=== PATIENT | female | born 1965 | race Caucasian/White ===

== ENCOUNTER 2018-09-09 17:44 | Emergency (ER) | payer BC, OTHER ==
[2018-09-09] MEDS ORDERED: IPRATROPIUM BROM 0.5MG/2.5ML ONE (20:27)
[2018-09-09] MEDS ORDERED: ALBUTEROL 2.5 MG/3 ML NEB SOL ONE (20:27)
--- NOTE | 2018-09-09 20:54 | RAD REPORT ---
EXAM DESCRIPTION: More Single View09/09/2018 8:13 pm CLINICAL HISTORY: Shortness of breath COMPARISON: none FINDINGS: The lungs appear clear of acute infiltrate. The heart is normal size IMPRESSION: No acute abnormalities displayed
--- NOTE | 2018-09-09 21:32 | ER ---
Nurse's Notes [facility] Name: Bibi Peterson Age: 52 yrs Sex: Female : 1965 Arrival Date: 09/09/2018 Time: 17:50 Bed 12 Private MD: Diagnosis: Acute bronchitis Presentation: 09/09 17:51 Presenting complaint: Patient states: Sunday i woke with cold symptoms and fever, hj today its getting worse, i think im wheezing;. Transition of care: patient was not received from another setting of care. Onset of symptoms was September 09, 2018. Risk Assessment: Do you want to hurt yourself or someone else? Patient reports no desire to harm self or others. Initial Sepsis Screen: Does the patient meet any 2 criteria? No. Patient's initial sepsis screen is negative. Does the patient have a suspected source of infection? No. Patient's initial sepsis screen is negative. Care prior to arrival: None. 17:51 Method Of Arrival: Ambulatory 17:51 Acuity: FARAZ 4 hj Triage Assessment: 17:52 General: Appears in no apparent distress. uncomfortable, Behavior is calm, cooperative, hj appropriate for age. Pain: Denies pain. Respiratory: Reports labored breathing Onset: The symptoms/episode began/occurred SHRIMPER: 17:53 LMP N/A - Hysterectomy hj Historical: - Allergies: 17:52 PENICILLINS; hj - Home Meds: 17:52 None [Active]; hj - PMHx: 17:52 None; hj - PSHx: 17:52 Hysterectomy; ; hj - Immunization history:: Adult Immunizations not up to date. - Social history:: Smoking status: Patient/guardian denies using tobacco, Patient uses alcohol. - Ebola Screening: : Patient negative for fever greater than or equal to 101.5 degrees Fahrenheit, and additional compatible Ebola Virus Disease symptoms Patient denies exposure to infectious person Patient denies travel to an Ebola-affected area in the 21 days before illness onset. Screenin:52 Abuse screen: Denies threats or abuse. Denies injuries from another. Nutritional hj screening: No deficits noted. Tuberculosis screening: No symptoms or risk factors identified. Fall Risk None identified. Assessment: 17:52 Cardiovascular: Rhythm is. Respiratory: Airway is patent Respiratory effort is even, hj unlabored, Respiratory pattern is regular, symmetrical, 18:55 Reassessment: Patient appears in no apparent distress at this time. Patient and/or family updated on plan of care and expected duration. Pain level reassessed. Patient is alert, oriented x 3, equal unlabored respirations, skin warm/dry/pink. General: Reports fever for 1-2 days, feeling ill for 2-3 days. Neuro: Level of Consciousness is awake, alert, obeys commands, Oriented to person, place, time, situation, Moves all extremities. Full function. Respiratory: Airway is patent Respiratory effort is even, unlabored, Respiratory pattern is regular, symmetrical. 21:36 Reassessment: Patient appears in no apparent distress at this time. No changes from aj previously documented assessment. Patient and/or family updated on plan of care and expected duration. Pain level reassessed. Patient is alert, oriented x 3, equal unlabored respirations, skin warm/dry/pink. Patient denies pain at this time. Patient states feeling better. Patient states symptoms have improved. Vital Signs: 17:53 BP 125 / 78; Pulse 74; Resp 18; Temp 98.4(TE); Pulse Ox 97% on R/A; Weight 99.34 kg; hj Height 5 ft. 9 in. (175.26 cm); Pain 0/10; 21:33 BP 126 / 81; Pulse 82; Resp 20; Pulse Ox 99% on R/A; aj 17:53 Body Mass Index 32.34 (99.34 kg, 175.26 cm) ED Course: 17:50 Patient arrived in ED. hj 17:51 Triage completed. hj 17:53 Arm band placed on right wrist. hj 17:54 Patient has correct armband on for positive identification. Bed in low position. Call light in reach. Side rails up X 1. 18:48 Charbel Napoles MD is Attending Physician. tw4 19:08 No provider procedures requiring assistance completed. iw 20:13 Chest Single View XRAY In Process Unspecified. EDMS 20:16 Gaye Dejesus, RN is Primary Nurse. aj 20:57 Throat Culture Sent. aj 21:36 Patient did not have IV access during this emergency room visit. aj Administered Medications: 20:20 Drug: Albuterol - atroVENT (3:1) (2.5 mg - 0.5 mg) 3 ml Route: Nebulizer; aj 21:08 Follow up: Response: Wheezing diminished aj Outcome: 21:31 Discharge ordered by . tw4 21:36 Discharged to home ambulatory. aj 21:36 Condition: good 21:36 Discharge instructions given to patient, Instructed on discharge instructions, follow up and referral plans. medication usage, Demonstrated understanding of instructions, follow-up care, medications, Prescriptions given X 3. 21:37 Patient left the ED. zeb Signatures: Dispatcher [employer] Gaye Fairchild RN RN aj Williams, Irene, RN RN iw Joaquin, Henry RN Charbel Person MD MD tw4 Corrections: (The following items were deleted from the chart) 17:55 17:53 Pulse 74bpm; Resp 18bpm; Pulse Ox 97% RA; Temp 98.4F Temporal; 99.34 kg; Height 5 hj ft. 9 in.; BMI: 32.3; Pain 0/10; hj
--- NOTE | 2018-09-09 21:32 | EDPHYS ---
Physician Documentation [facility] Name: Bibi Peterson Age: 52 yrs Sex: Female : 1965 Arrival Date: 09/09/2018 Time: 17:50 Bed 12 Private MD: SYED Physician Charbel Napoles PALEOBOTANIST: 09/09 17:53 LMP N/A - Hysterectomy hj Historical: - Allergies: 17:52 PENICILLINS; hj - Home Meds: 17:52 None [Active]; hj - PMHx: 17:52 None; hj - PSHx: 17:52 Hysterectomy; ; hj - Immunization history:: Adult Immunizations not up to date. - Social history:: Smoking status: Patient/guardian denies using tobacco, Patient uses alcohol. - Ebola Screening: : Patient negative for fever greater than or equal to 101.5 degrees Fahrenheit, and additional compatible Ebola Virus Disease symptoms Patient denies exposure to infectious person Patient denies travel to an Ebola-affected area in the 21 days before illness onset. Vital Signs: 17:53 BP 125 / 78; Pulse 74; Resp 18; Temp 98.4(TE); Pulse Ox 97% on R/A; Weight 99.34 kg; hj Height 5 ft. 9 in. (175.26 cm); Pain 0/10; 21:33 BP 126 / 81; Pulse 82; Resp 20; Pulse Ox 99% on R/A; aj 17:53 Body Mass Index 32.34 (99.34 kg, 175.26 cm) MDM: 18:48 Patient medically screened. 09/09 19:44 Order name: Flu 4 09/09 19:44 Order name: Strep 4 09/09 19:44 Order name: Chest Single View XRAY 09/09 20:20 Order name: Throat Culture EDMS Administered Medications: 20:20 Drug: Albuterol - atroVENT (3:1) (2.5 mg - 0.5 mg) 3 ml Route: Nebulizer; aj 21:08 Follow up: Response: Wheezing diminished aj Disposition: 09/09/18 21:31 Discharged to Home. Impression: Acute bronchitis. - Condition is Stable. - Discharge Instructions: Acute Bronchitis, Adult. - Prescriptions for Tessalon Perles 100 mg Oral Capsule - take 1 capsule by ORAL route every 8 hours As needed; 15 capsule. Zithromax Z- Asaf 250 mg Oral Tablet - take 1 tablet by ORAL route as directed for 5 days Day 1 - take two (2) tablets one time. Day 2, 3, 4 , 5 take one (1) tablet once daily.; 6 tablet. Albuterol Sulfate 90 mcg/actuation - inhale 1-2 puff by INHALATION route every 4-6 hours; 1 Inhaler. - Medication Reconciliation Form, Thank You Letter, Antibiotic Education, Prescription Opioid Use form. - Follow up: Private Physician; When: Upon discharge from the Emergency Department; Reason: Recheck today's complaints, Continuance of care, Re-evaluation by your physician. - Problem is new. - Symptoms have improved. Addendum: 09/14/2018 06:56 Addendum: HPI: Pt is a 52 year old female that comes to the emergency department with t w4 complaints of cough for 3 days. Pt states that cough is nonproductive. Pt denies fever,chills, SOB, WHITE. Addendum: ROS: Constitutional: denies fever, chills HEENT: denies sore throat, neck pain Neck: denies injury, difficulty swallowing Resp: positive for cough, denies, SOB, WHITE CV: denies CP, palpitations Ext: denies injury, edema Neuro: denies weakness, numbness, speech changes. Addendum: PE: General: well developed female in NAD HEENT: PERRLA, EOMI Neck: supple, nontender Resp: no resp distress, CTAB CV: RRR, nl S1, S2, no murmurs no gallops Ext: no edema, nontender Neuro: A \T\ O x 3 CN grossly intact, moves all fours , gait normal. Signatures: Dispatcher [employer] Gaye Fairchild RN RN aj Joaquin, Henry, RN RN hj Wadley, Terrence, MD MD tw4 Corrections: (The following items were deleted from the chart) 09/09 21:37 21:31 09/09/2018 21:31 Discharged to Home. Impression: Acute bronchitis. Condition is aj Stable. Forms are Medication Reconciliation Form, Thank You Letter, Antibiotic Education, Prescription Opioid Use. Follow up: Private Physician; When: Upon discharge from the Emergency Department; Reason: Recheck today's complaints, Continuance of care, Re-evaluation by your physician. Problem is new. Symptoms have improved. tw4
== END 2018-09-09 21:37 | disposition home or self-care (01) ==
LOC: ER 17:44
DX: J20.9 Acute bronchitis, unspecified (principal); Z88.0 Allergy status to penicillin
CPT/HCPCS: 71045; 87070; 87081; 87804; 94640; 99284